=== PATIENT | female | born 1970 | race Caucasian/White ===

== ENCOUNTER 2016-09-21 18:15 | Emergency (ER) | payer MEDICARE, OTHER ==
[~2016-09-21] VITALS: Ht 167.6 cm; Wt 75.0 kg
[~2016-09-21 18:15] MED LIST: BACL10TA PO; CLON1 PO; LEXA20TA PO; SERO50TA4 PO; TOPA200T4 PO; TRAZ100 PO
[2016-09-21 20:09] VITALS: BP 131/74; PULSE 90; RESP 18; TEMP 97.1; O2SAT 96
[2016-09-21] MEDS ORDERED: SODIUM CHLOR 0.9% 1000 ML INJ 1,000 ML IV ONE (20:18)
--- NOTE | 2016-09-21 20:27 | PD ---
HPI Chief Complaint: Psychiatric Symptoms Time Seen by Provider: 20:21 Travel History International Travel<30 days: No Contact w/Intl Traveler<30days: No Traveled to known affect area: No History of Present Illness HPI 46-year-old female presents to the emergency Department under [place] act by local police. Patient is alert and oriented to person, place, time. She states that she feels safe of the [facility] so that is why she was there although she is not a resident. She states that her mother lives with her home. She is concerned about her cat at home he needs insulin shots. The patient states that she is confused as to why she is here. She states she went to [facility] because she felt safe, but the director of the police showed up and brought her to the emergency department. The patient denies any current suicidal or homicidal ideations. Patient states that she is having intermittent dizziness over the past 2 weeks which is worse with position changes. She reports feeling dizzy at this time. No syncope. She does report a headache as well. PFSH Past Medical History Anxiety: Yes Insomnia: Yes Psychiatric: Yes (anxietty) Respiratory: Yes (asthma) Immunizations Current: Yes Seizures: Yes ?: Not : 0 Past Surgical History Hysterectomy: No Social History Alcohol Use: Yes (Rarely ) Tobacco Use: Yes Substance Use: No Allergies-Medications (Allergen,Severity, Reaction): Coded Allergies: Lipitor (Verified Allergy, Intermediate, 09/21/16) legs swell Reported Meds & Prescriptions Reported Meds & Active Scripts Active Reported Trazodone (Trazodone HCl) 100 Mg Tab 100 Mg PO HS Topamax (Topiramate) 200 Mg Tab 200 Mg PO DAILY PRN Lexapro (Escitalopram Oxalate) 20 Mg Tab 20 Mg PO DAILY Klonopin (Clonazepam) 1 Mg Tab 1 Mg PO TID Baclofen 10 Mg Tab 10 Mg PO TID Review of Systems Except as stated in HPI: all other systems reviewed are Neg Physical Exam Narrative GENERAL: Well-developed well-nourished female patient, ambulatory. Afebrile. SKIN: Warm and dry. HEAD: Normocephalic. Atraumatic. EYES: No scleral icterus. No injection or drainage. NECK: Supple, trachea midline. No JVD or lymphadenopathy. CARDIOVASCULAR: Regular rate and rhythm without murmurs, gallops, or rubs. RESPIRATORY: Breath sounds equal bilaterally. No accessory muscle use. Lungs sounds are clear to auscultation. GASTROINTESTINAL: Abdomen soft, non-tender, nondistended. MUSCULOSKELETAL: No cyanosis, or edema. Bilateral upper and lower extremity strength 5/5. All extremities are neurovascularly intact. BACK: Nontender without obvious deformity. No CVA tenderness. Data Data Last Documented VS Vital Signs Date Time Temp Pulse Resp B/P Pulse Ox O2 Delivery O2 Flow Rate FiO2 09/21/16 22:39 88 16 122/87 96 16 141/89 96 16 136/90 09/21/16 22:36 97 Room Air 09/21/16 20:09 97.1 Orders Complete Blood Count With Diff (09/21/16 20:18) Comprehensive Metabolic Panel (09/21/16 20:18) Urinalysis - C+S If Indicated (09/21/16 20:18) Electrocardiogram (09/21/16 20:18) Psych Screen (09/21/16 20:18) Drug Screen, Random Urine (09/21/16 20:18) Alcohol (Ethanol) (09/21/16 20:18) Magnesium (Mg) (09/21/16 20:18) Ckmb (Isoenzyme) Profile (09/21/16 20:18) Troponin I (09/21/16 20:18) Ct Brain W/O Iv Contrast(Rout) (09/21/16 20:18) Ecg Monitoring (09/21/16 20:18) Iv Access Insert/Monitor (09/21/16 20:18) Oximetry (09/21/16 20:18) Meclizine (Antivert) (09/21/16 20:30) Sodium Chloride 0.9% Flush (Ns Flush) (09/21/16 20:30) Sodium Chlor 0.9% 1000 Ml Inj (Ns 1000 M (09/21/16 20:18) Orthostatic Vital Signs (09/21/16 20:18) Labs Laboratory Tests Test 09/21/16 20:30 White Blood Count 6.1 TH/MM3 Red Blood Count 4.82 MIL/MM3 Hemoglobin 14.8 GM/DL Hematocrit 43.1 % Mean Corpuscular Volume 89.4 FL Mean Corpuscular Hemoglobin 30.8 PG Mean Corpuscular Hemoglobin 34.5 % Concent Red Cell Distribution Width 13.1 % Platelet Count 436 TH/MM3 Mean Platelet Volume 7.7 FL Neutrophils (%) (Auto) 61.3 % Lymphocytes (%) (Auto) 32.5 % Monocytes (%) (Auto) 4.9 % Eosinophils (%) (Auto) 0.6 % Basophils (%) (Auto) 0.7 % Neutrophils # (Auto) 3.8 TH/MM3 Lymphocytes # (Auto) 2.0 TH/MM3 Monocytes # (Auto) 0.3 TH/MM3 Eosinophils # (Auto) 0.0 TH/MM3 Basophils # (Auto) 0.0 TH/MM3 CBC Comment DIFF FINAL Differential Comment Sodium Level 139 MEQ/L Potassium Level 3.8 MEQ/L Chloride Level 104 MEQ/L Carbon Dioxide Level 25.2 MEQ/L Anion Gap 10 MEQ/L Blood Urea Nitrogen 5 MG/DL Creatinine 0.66 MG/DL Estimat Glomerular Filtration 97 ML/MIN Rate Random Glucose 112 MG/DL Calcium Level 8.5 MG/DL Magnesium Level 2.2 MG/DL Total Bilirubin 0.2 MG/DL Aspartate Amino Transf 12 U/L (AST/SGOT) Alanine Aminotransferase 26 U/L (ALT/SGPT) Alkaline Phosphatase 106 U/L Total Creatine Kinase 69 U/L Troponin I LESS THAN 0.02 NG/ML Total Protein 8.1 GM/DL Albumin 4.0 GM/DL Ethyl Alcohol Level 230 MG/DL MDM Medical Decision Making Medical Screen Exam Complete: Yes Emergency Medical Condition: Yes Medical Record Reviewed: Yes Interpretation(s) CT brain - CONCLUSION: Unremarkable study. Differential Diagnosis Depression versus anxiety versus adjustment disorder versus bipolar versus schizophrenia Narrative Course 46-year-old female presents to the emergency department under [place] act by local police for bizarre behavior. Patient does complain of being dizziness as well as having a headache. She is alert and oriented to person, place, time. EKG, CBC, CMP, magnesium, CK, troponin, UA, alcohol level, urine drug screen , CT of the brain, orthostatic vital signs are ordered and pending. EKG shows SR, HR 84, no acute ST changes. CBC is unremarkable. CMP shows no acute abnormalities. Magnesium is 2.2. CK is 69 Troponin is less than 0.02. UA is pending. alcohol level is 230. Urine drug screen is pending. CT of the brain is unremarkable. Orthostatic VS are negative for orthostatic hypotension. Upon no acute abnormalities in UA, the patient will be medically cleared for psychiatric screening and disposition. Diagnosis Primary Impression: Anxiety disorder Qualified Code: F41.9 - Anxiety disorder, unspecified type Additional Impressions: Alcohol intoxication Qualified Code: F10.120 - Alcohol intoxication, uncomplicated Vertigo Additional Instructions: Patient is medically cleared for psychiatric screening and disposition. Condition: Stable Mary Young HARRY Sep 21, 2016 20:27
[2016-09-21] MEDS ORDERED: MECLIZINE HCL 25 MG TAB PO ONE (20:30)
[2016-09-21] MEDS ORDERED: SODIUM CHLORIDE 0.9% FLUSH 5 ML FLUSH IVF PRN (20:30)
[2016-09-21 21:20] LABS: ANION GAP 10 MEQ/L (5-15); AST (GOT) 12 U/L (15-37); BICARBONATE 25.2 MEQ/L (21.0-32.0); BLOOD UREA NITROGEN 5 MG/DL (7-18); CHLORIDE 104 MEQ/L (98-107); GLOMERULAR FILTRATION RATE 97 ML/MIN (>89); MAGNESIUM 2.2 MG/DL (1.5-2.5); POTASSIUM 3.8 MEQ/L (3.5-5.1); SODIUM (NA) 139 MEQ/L (136-145)
[2016-09-21 21:21] LABS: AUTOMATED NEUTROPHIL # 3.8 TH/MM3 (1.8-7.7); BASOPHIL % 0.7 % (0.0-2.0); EOSINOPHIL % 0.6 % (0.0-4.0); HEMATOCRIT 43.1 % (35.0-46.0); HEMO FLAGS DIFF FINAL; LYMPH % 32.5 % (9.0-44.0); MEAN CELL VOLUME 89.4 FL (80.0-100.0); MEAN CORPUSCULAR HEMOGLOBIN 30.8 PG (27.0-34.0); MEAN CORPUSCULAR HGB CONC 34.5 % (32.0-36.0); MONO % 4.9 % (0.0-8.0); NEUT % 61.3 % (16.0-70.0); PLATELET COUNT 436 TH/MM3 (150-450); RED BLOOD COUNT 4.82 MIL/MM3 (4.00-5.30); RED CELL DISTRIBUTION WIDTH 13.1 % (11.6-17.2); WHITE BLOOD COUNT 6.1 TH/MM3 (4.0-11.0)
[2016-09-21 21:25] LABS: ALKALINE PHOSPHATASE 106 U/L (45-117); ALT (GPT) 26 U/L (10-53); TOTAL BILIRUBIN ADULT 0.2 MG/DL (0.2-1.0)
[2016-09-21 21:26] LABS: CREATINE KINASE 69 U/L (26-192)
--- NOTE | 2016-09-21 21:29 | RADRPT ---
EXAM DATE/TIME: 09/21/2016 20:53 [facility] COMPARISON: No previous studies available for comparison. INDICATIONS : Dizziness and altered mental status. RADIATION DOSE: 38.82 CTDIvol (mGy) MEDICAL HISTORY : Seizures. SURGICAL HISTORY : None. ENCOUNTER: Initial ACUITY: 1 day PAIN SCALE: 2/10 LOCATION: cranial TECHNIQUE: Multiple contiguous axial images were obtained of the head. Using automated exposure control and adj ustment of the mA and/or kV according to patient size, radiation dose was kept as low as reasonably a chievable to obtain optimal diagnostic quality images. FINDINGS: There is no evidence for intracranial hemorrhage, mass effect, mass lesions, edema, or extra-axial fl uid collections. The visualized bony structures appear intact. The ventricles are normal size for t he patient's age. There are no signs of acute infarction for technique. CONCLUSION: Unremarkable study. Cal James MD on September 21, 2016 at 21:21 Board Certified Radiologist. This report was verified electronically.
[2016-09-21 22:36] VITALS: BP 117/81; PULSE 88; RESP 16; O2SAT 97
[2016-09-21 22:39] VITALS: BP_SYST 122; BP_SYST 136; BP_SYST 141; BP_DIAS 87; BP_DIAS 89; BP_DIAS 90; RESP 16
[2016-09-21] MEDS ORDERED: CLON1 PO (22:42)
[2016-09-21] MEDS ORDERED: TRAZ100T4 PO (22:42)
[2016-09-21] MEDS ORDERED: LEXA20TA PO (22:42)
[2016-09-21] MEDS ORDERED: BACL10TA PO (22:42)
[2016-09-21] MEDS ORDERED: TOPI200 PO (22:42)
[2016-09-22 00:23] VITALS: BP 134/92; PULSE 101; RESP 19; O2SAT 97
[2016-09-22 02:07] VITALS: BP 107/57; PULSE 94; RESP 17; O2SAT 95
[2016-09-22 06:26] VITALS: BP 131/79; PULSE 99; RESP 18; O2SAT 96
[2016-09-22 10:03] LABS: BLOOD, URINE NEG (NEG); COMMENT (UR) CULT NOT INDICATED; CULTURE IF INDICATED CULT NOT INDICATED; GLUCOSE,URINE NEG (NEG); KETONE, URINE NEG (NEG); MUCUS URINE FEW /lpf (OCC); NITRITE,URINE NEG (NEG); SQUAMOUS EPITHELIAL CELL URINE 1 /hpf (0-5); URINE COLOR LIGHT-YELLOW (YELLW/STRAW)
[2016-09-22 10:10] LABS: AMPHETAMINE, URINE NEG (NEG); BARBITURATES, URINE NEG (NEG); COCAINE, URINE NEG (NEG)
--- NOTE | 2016-09-22 12:29 | PD ---
History of Present Illness Chief Complaint: Psychiatric Symptoms Time Seen by Provider: 12:00 Travel History International Travel<30 Days: No Contact w/Intl Traveler<30days: No Known affected area: No Legal Status Legal Status: Granado Act [place] Act Signed By: [facility] [employer] History of Present Illness: History of Present Illness 46-year-old female with history of anxiety who presents to the emergency Department under [place] act by local police. As per the BA report the patient was found in the parking lot of a [facility] and she was alleged to have been acting hostile towards them. She reported to the police that she was in danger but was not able to tell them why. She also told them that she was taking medication and drinking alcohol. Patient presents toed with BAL of 230. She was monitored in J pod . She did not presenta any behavioral concerns or suicidality. As per EMR review she was placed under a BA in February of 2016 for suicidal ideation. At the time she was a [facility] the [facility]. The patient is seen in J pod. She is awake, alert and oriented. Calm. Speech is clear and logical. There is not symptoms of withdrawal. She is now clinically sober. The patient does not present any psychosis and no vamsi. She denies any suicidal or homicidal ideation and is concerned over her cat as well as concerned over her mother. She is requesting discharge at this time. PFSH Past Medical History Medical History: Denies Significant Hx Anxiety: Yes Insomnia: Yes Psychiatric: Yes (anxietty) Respiratory: Yes (asthma) Immunizations Current: Yes Seizures: Yes ?: Not : 0 Past Surgical History Hysterectomy: No Psychiatric History Psychiatric History Hx Psychiatric Treatment: HX: ANXIETY treated by her PCP. History of Inpatient Treatment: No Guns or firearms in home: No Social History Single female. Born and raised in [place]. Lives with her mother. Has worked as a barbosa in the past. Now unemployed. Hx Alcohol Use: Yes (Rarely ) Hx Tobacco Use: Yes Hx Substance Use: Yes Substance Use Type: Alcohol (BAL 230) Hx of Substance Use Treatment: No Family Psychiatric History Negative Allergies-Medications (Allergen,Severity, Reaction): Coded Allergies: Lipitor (Verified Allergy, Intermediate, 09/21/16) legs swell Reported Meds & Prescriptions Reported Meds & Active Scripts Active Reported Trazodone (Trazodone HCl) 100 Mg Tab 100 Mg PO HS Topamax (Topiramate) 200 Mg Tab 200 Mg PO DAILY PRN Lexapro (Escitalopram Oxalate) 20 Mg Tab 20 Mg PO DAILY Klonopin (Clonazepam) 1 Mg Tab 1 Mg PO TID Baclofen 10 Mg Tab 10 Mg PO TID Review of Systems Constitutional: DENIES: Diaphoretic episodes, Fatigue, Fever, Weight gain, Weight loss, Chills, Dizziness, Change in appetite, Night Sweats Endocrine: DENIES: Abnorml menstrual pattern, Heat/cold intolerance, Polydipsia , Polyuria, Polyphagia Ears, nose, mouth, throat: DENIES: Tinnitus, Hearing loss, Vertigo, Nasal discharge, Oral lesions, Throat pain, Hoarseness, Ear Pain, Running Nose, Epistaxis, Sinus Pain, Toothache, Odynophagia Respiratory: DENIES: Apneas, Cough, Snoring, Wheezing, Hemoptysis, Sputum production, Shortness of breath Cardiovascular: DENIES: Chest pain, Palpitations, Syncope, Dyspnea on Exertion , PND, Lower Extremity Edema, Orthopnea, Claudication Gastrointestinal: DENIES: Abdominal pain, Black stools, Bloody stools, Constipation, Diarrhea, Nausea, Vomiting, Difficulty Swallowing, Anorexia Genitourinary: DENIES: Abnormal vaginal bleeding, Dysmenorrhea, Dyspareunia, Sexual dysfunction, Urinary frequency, Urinary incontinence, Urgency, Hematuria , Dysuria, Nocturia, Vaginal discharge Musculoskeletal: COMPLAINS OF: Back pain Integumentary: DENIES: Abnormal pigmentation, Pruritus, Rash, Nail changes, Breast masses, Breast skin changes, Nipple discharge Hematologic/lymphatic: DENIES: Bruising, Lymphadenopathy Immunologic/allergic: DENIES: Eczema, Urticaria Neurologic: COMPLAINS OF: Poor Balance (due to vertigo) Psychiatric: COMPLAINS OF: Anxiety Exam Alert: Yes [place]: Person (ox4) Mood: Calm Affect: Euthymic Speech: Clear, Logical Eye Contact: Normal Memory Intact: Comment (no impairment) Hallucinations: Other (negative) Delusions: No Suicidal: Ideation (denies any) Homicidal: Ideation (denies any) Insight/Judgement Fair. not impaired. MDM Medical Decision Making Medical Record Reviewed: Yes Assessment/Plan 46 year old female who is under a BA after she was found parked at a [facility]. the patient was intoxicated at the time . As per the report she was alleged to have been hostile and requesting help as she felt in danger. She is now clinically sober and is denying any psychiatric symptomatology and denies any suicidal or homicidal ideation. She does not meet criteria for BA and is requesting discharge as she cares for a cat as well as for her mother. Lift BA and discharge. Counseling re ETOH use. Orders Complete Blood Count With Diff (09/21/16 20:18) Comprehensive Metabolic Panel (09/21/16 20:18) Urinalysis - C+S If Indicated (09/21/16 20:18) Electrocardiogram (09/21/16 20:18) Psych Screen (09/21/16 20:18) Drug Screen, Random Urine (09/21/16 20:18) Alcohol (Ethanol) (09/21/16 20:18) Magnesium (Mg) (09/21/16 20:18) Ckmb (Isoenzyme) Profile (09/21/16 20:18) Troponin I (09/21/16 20:18) Ct Brain W/O Iv Contrast(Rout) (09/21/16 20:18) Ecg Monitoring (09/21/16 20:18) Iv Access Insert/Monitor (09/21/16 20:18) Oximetry (09/21/16 20:18) Meclizine (Antivert) (09/21/16 20:30) Sodium Chloride 0.9% Flush (Ns Flush) (09/21/16 20:30) Sodium Chlor 0.9% 1000 Ml Inj (Ns 1000 M (09/21/16 20:18) Orthostatic Vital Signs (09/21/16 20:18) Diet Regular Basic (09/22/16 Breakfast) Diet Regular Basic (09/22/16 Lunch) Results Vital Signs Date Time Temp Pulse Resp B/P Pulse Ox O2 Delivery O2 Flow Rate FiO2 09/22/16 06:26 99 18 131/79 96 Room Air 09/22/16 02:07 94 17 107/57 95 Room Air 09/22/16 00:23 101 19 134/92 97 Room Air 09/21/16 22:39 88 16 122/87 96 16 141/89 96 16 136/90 09/21/16 22:36 88 16 117/81 97 Room Air 09/21/16 20:09 97.1 90 18 131/74 96 Laboratory Tests Test 09/21/16 09/22/16 20:30 09:34 White Blood Count 6.1 Red Blood Count 4.82 Hemoglobin 14.8 Hematocrit 43.1 Mean Corpuscular Volume 89.4 Mean Corpuscular Hemoglobin 30.8 Mean Corpuscular Hemoglobin 34.5 Concent Red Cell Distribution Width 13.1 Platelet Count 436 Mean Platelet Volume 7.7 Neutrophils (%) (Auto) 61.3 Lymphocytes (%) (Auto) 32.5 Monocytes (%) (Auto) 4.9 Eosinophils (%) (Auto) 0.6 Basophils (%) (Auto) 0.7 Neutrophils # (Auto) 3.8 Lymphocytes # (Auto) 2.0 Monocytes # (Auto) 0.3 Eosinophils # (Auto) 0.0 Basophils # (Auto) 0.0 CBC Comment DIFF FINAL Differential Comment Sodium Level 139 Potassium Level 3.8 Chloride Level 104 Carbon Dioxide Level 25.2 Anion Gap 10 Blood Urea Nitrogen 5 Creatinine 0.66 Estimat Glomerular Filtration 97 Rate Random Glucose 112 Calcium Level 8.5 Magnesium Level 2.2 Total Bilirubin 0.2 Aspartate Amino Transf 12 (AST/SGOT) Alanine Aminotransferase 26 (ALT/SGPT) Alkaline Phosphatase 106 Total Creatine Kinase 69 Troponin I LESS THAN 0.02 Total Protein 8.1 Albumin 4.0 Ethyl Alcohol Level 230 Urine Color LIGHT-YELLOW Urine Turbidity CLEAR Urine pH 7.0 Urine Specific [place] 1.009 Urine Protein NEG Urine Glucose (UA) NEG Urine Ketones NEG Urine Occult Blood NEG Urine Nitrite NEG Urine Bilirubin NEG Urine Urobilinogen LESS THAN 2.0 Urine Leukocyte Esterase NEG Urine RBC LESS THAN 1 Urine WBC LESS THAN 1 Urine Squamous Epithelial 1 Cells Urine Mucus FEW Microscopic Urinalysis Comment CULT NOT INDICATED Urine Opiates Screen NEG Urine Barbiturates Screen NEG Urine Amphetamines Screen NEG Urine Benzodiazepines Screen NEG Urine Cocaine Screen NEG Urine Cannabinoids Screen NEG Diagnosis Primary Impression: Alcohol intoxication Additional Impressions: Anxiety disorder Vertigo Psychiatrically Cleared: Yes Additional Instructions: Patient is medically cleared for psychiatric screening and disposition. Med/ Other Pt Specific Info: No Change to Meds Disposition: 01 DISCHARGE HOME Condition: Stable Problem Qualifiers Primary Impression: Alcohol intoxication Qualified Code: F10.120 - Alcohol intoxication, uncomplicated Additional Impressions: Anxiety disorder Qualified Code: F41.9 - Anxiety disorder, unspecified type Leah Meyer Sep 22, 2016 12:29
[2016-09-22 13:07] VITALS: BP 103/64; PULSE 121; RESP 20; O2SAT 97
--- NOTE | 2016-09-22 23:14 | EKG ---
Date Performed: 09/21/2016 Time Performed: 22:32:29 PTAGE: 46 years EKG: Sinus rhythm NORMAL ECG NO PREVIOUS TRACING DOCTOR: Sushil Pompa Interpretating Date/Time 09/22/2016 23:12:49
== END 2016-09-22 15:17 | disposition home or self-care (01) ==
LOC: NEPE 18:15 → NEPJ 09-22 15:17
DX: F10.120 Alcohol abuse with intoxication, uncomplicated (principal); F41.9 Anxiety disorder, unspecified; R42 Dizziness and giddiness; R51 Headache; Y90.7 Blood alcohol level of 200-239 mg/100 ml
CPT/HCPCS: 70450; 80053; 80307; 80320; 81001; 82550; 83735; 84484; 85025; 93005; 99285; J7030